=== PATIENT | male | born 1950 ===

== ENCOUNTER 2019-12-26 15:36 | Inpatient (IN) ==
[2019-12-26 20:53] LABS: ABS Lymphocytes 0.8 10^3/ul (1.0-4.8); ABS Monocytes 0.1 10^3/ul (0-0.8); ABS Neutrophils 6.4 10^3/ul (1.5-7.7); Hematocrit 40 % (42-52); Hemoglobin 13.9 g/dL (14.0-18.0); Lymphocyte % 11.5 %; Mean Corpuscular HGB Conc 35 g/dL (31-36); Mean Corpuscular Hemoglobin 32 pg (27-31); Mean Corpuscular Volume 92 fL (80-94); Mean Platelet Volume 6.7 fL (7.4-10.4); Platelet Count 355 10^3/uL (150-450); Red Blood Count 4.32 10^6 /uL (4.18-5.48); Red Cell Distribution Width 13 % (10-15); White Blood Count 7.4 10^3/uL (3.5-10.8)
[2019-12-26] MEDS ORDERED: Albuterol 2.5mg/3 ml (0.083%) NEB.SOLN INH PRN (21:00)
[2019-12-26] MEDS ORDERED: Albuterol/Ipratropium NEB.SOL (2.5/0.5 MG) 3 ML NEB.SOLN INH PRN (21:02)
[2019-12-26 21:06] LABS: ALT 19 U/L (7-52); AST 17 U/L (13-39); Albumin 4.2 g/dL (3.2-5.2); Albumin/Globulin Ratio 2.1 (1-3); Alkaline Phosphatase 52 U/L (34-104); Anion Gap 7 mmol/L (2-11); BUN/Creatinine Ratio 18.1 (8-20); Blood Urea Nitrogen 13 mg/dL (6-24); C Reactive Protein < 1.00 mg/L (<8.01); CO2 Carbon Dioxide 32 mmol/L (22-32); Calcium 9.7 mg/dL (8.6-10.3); Chloride 100 mmol/L (101-111); EGFR African American 131.8 (>60); EGFR Non-African American 108.9 (>60); Glucose 176 mg/dL (70-100); Magnesium 1.8 mg/dL (1.9-2.7); Potassium 4.3 mmol/L (3.5-5.0); Sodium 139 mmol/L (135-145); Total Protein 6.2 g/dL (6.4-8.9)
[2019-12-26 21:09] LABS: Troponin I 0.08 ng/mL (<0.03)
[2019-12-26 21:20] LABS: Cholesterol 234 mg/dL; HDL Cholesterol 83.5 mg/dL; LDL Cholesterol 141 mg/dL; Triglycerides 46 mg/dL
[2019-12-26] MEDS ORDERED: Albuterol/Ipratropium NEB.SOL (2.5/0.5 MG) 3 ML NEB.SOLN INH SCH (22:00)
[2019-12-26] MEDS: methylPREDNISolone SOD 40 mg/ml 1 ml VIAL IV SCH (22:09)
[2019-12-26 23:32] LABS: Troponin I 0.07 ng/mL (<0.03)
[2019-12-27 03:47] LABS: Troponin I 0.05 ng/mL (<0.03)
[2019-12-27] MEDS: methylPREDNISolone SOD 40 mg/ml 1 ml VIAL IV SCH ×3 (05:31→21:34)
[2019-12-27 06:08] LABS: ABS Lymphocytes 1.2 10^3/ul (1.0-4.8); ABS Monocytes 0.4 10^3/ul (0-0.8); ABS Neutrophils 10.7 10^3/ul (1.5-7.7); Hematocrit 39 % (42-52); Hemoglobin 13.4 g/dL (14.0-18.0); Lymphocyte % 9.6 %; Mean Corpuscular HGB Conc 34 g/dL (31-36); Mean Corpuscular Hemoglobin 32 pg (27-31); Mean Corpuscular Volume 93 fL (80-94); Mean Platelet Volume 6.9 fL (7.4-10.4); Platelet Count 369 10^3/uL (150-450); Red Blood Count 4.24 10^6 /uL (4.18-5.48); Red Cell Distribution Width 13 % (10-15); White Blood Count 12.3 10^3/uL (3.5-10.8)
[2019-12-27 06:27] LABS: BUN/Creatinine Ratio 26.2 (8-20); Calcium 9.3 mg/dL (8.6-10.3); EGFR African American 148.3 (>60); EGFR Non-African American 122.5 (>60); Potassium 4.1 mmol/L (3.5-5.0)
[2019-12-27] MEDS: SPIRIVA Respimat (tiotropium) 2.5 mcg/inh Inhaler INH SCH (07:32)
[2019-12-27] MEDS: Mometasone/Formoter 200/5 MDI INH SCH ×2 (07:36→19:36)
[2019-12-27] MEDS ORDERED: Enoxaparin 40 MG/0.4 ML SYR SUBCUT SCH (08:00)
[2019-12-27] MEDS ORDERED: Regadenoson 0.4 MG/5 ML SYRINGE ONE (08:23)
[2019-12-27] MEDS ORDERED: Aminophylline 25 MG/ML VIAL ONE (08:24)
[2019-12-27] MEDS: Enoxaparin 40 MG/0.4 ML SYR SUBCUT SCH (10:53)
[2019-12-27] MEDS: Nicotine PATCH 14 MG/24 HR PATCH TRANSDERM SCH (22:01)
[2019-12-28] MEDS: methylPREDNISolone SOD 40 mg/ml 1 ml VIAL IV SCH ×2 (05:20→13:50)
[2019-12-28] MEDS: Nicotine PATCH 14 MG/24 HR PATCH TRANSDERM SCH (08:16)
[2019-12-28] MEDS: Mometasone/Formoter 200/5 MDI INH SCH (08:50)
[2019-12-28] MEDS: SPIRIVA Respimat (tiotropium) 2.5 mcg/inh Inhaler INH SCH (08:51)
[2019-12-28] MEDS: Enoxaparin 40 MG/0.4 ML SYR SUBCUT SCH (10:43)
[2019-12-28 11:57] VITALS: BP 123/60
[2019-12-28] MEDS ORDERED: Nicotine PATCH 14 MG/24 HR PATCH TRANSDERM SCH (21:00)
== END 2019-12-28 15:00 | disposition home or self-care (01) | DRG 191 ==
LOC: MEDTELE 19:58 → INTOOBSV 20:15
PROVIDERS: ADMIT Internal Medicine; ATTEND Internal Medicine